=== PATIENT | male | born 1990 | race Two or more races ===

== ENCOUNTER 2023-03-24 21:42 | Emergency (ER) | payer OTHER ==
[~2023-03-24] VITALS: Ht 188 cm
[2023-03-24 22:06] LABS: RAPID GROUP A STREP negative (NEGATIVE)
[2023-03-24 22:08] LABS: SARS-CoV-2, RNA, NAAT NEGATIVE SARS CoV-2 (NEGATIVE)
[2023-03-24 22:13] LABS: INFLUENZA TYPE A Negative For Type A (NEGATIVE); INFLUENZA TYPE B Negative For Type B (NEGATIVE)
[2023-03-24] MEDS ORDERED: GUAI600T50 PO (22:24)
[2023-03-24] MEDS ORDERED: AZIT250T9 PO (22:24)
[2023-03-24] MEDS ORDERED: GUAIFENESIN 600 MG TABLET.ER PO ONE (22:30)
[2023-03-24] MEDS ORDERED: AZITHROMYCIN 250 MG TABLET PO ONE (22:30)
[2023-03-24] MEDS ORDERED: ACETAMINOPHEN 325 MG TAB PO ONE (22:30)
[2023-03-24 23:40] VITALS: TEMP 99.2
[2023-03-24 23:56] VITALS: BP 127/89; PULSE 92; RESP 16; O2SAT 100
== END 2023-03-24 23:57 | disposition home or self-care (01) ==
LOC: EDH 21:42
DX: J06.9 Acute upper respiratory infection, unspecified (principal); Z20.822 Contact with and (suspected) exposure to COVID-19
CPT/HCPCS: 99284; 87635; 87880; 87804 ×2; C9803